=== PATIENT | female | born 1960 | race Two or more races ===

== ENCOUNTER 2020-05-25 16:42 | Emergency (ER) | payer OTHER ==
[~2020-05-25] VITALS: Ht 154.9 cm; Wt 64.0 kg
[2020-05-25] MEDS ORDERED: ACETAMINOPHEN 325MG TABLET PO ONE (20:00)
[2020-05-25 20:12] VITALS: BP 134/74
== END 2020-05-25 20:14 | disposition home or self-care (01) ==
LOC: ER 16:42
DX: U07.1 COVID-19 (principal); R05 Cough; R09.81 Nasal congestion; R00.0 Tachycardia, unspecified; E11.9 Type 2 diabetes mellitus without complications
CPT/HCPCS: 71045; 82962; 93005; 99285; C9803; U0003